=== PATIENT | female | born 1965 | race Caucasian/White ===

== ENCOUNTER 2017-05-25 20:17 | Emergency (ER) | payer BC | END 2017-05-25 21:48 | disposition home or self-care (01) | LOC: D.ER 20:17 | DX: M79.662 Pain in left lower leg (principal); S69.92XA Unspecified injury of left wrist, hand and finger(s), initial encounter; V49.9XXA Car occupant (driver) (passenger) injured in unspecified traffic accident, initial encounter; Y93.89 Activity, other specified; Y92.410 Unspecified street and highway as the place of occurrence of the external cause; I10 Essential (primary) hypertension; F17.200 Nicotine dependence, unspecified, uncomplicated ==